=== PATIENT | male | born 1975 | race Hispanic/Latino ===

== ENCOUNTER 2018-05-11 14:53 | Outpatient (CLI) | payer BC ==
--- NOTE | 2018-05-15 09:49 | Vascular Lab Report ---
Left Lower Extremity Venous Duplex Study: Reason for Exam: Pain and swelling of the left lower extremity. Comments on the Right: A limited duplex study was done of the proximal veins of the right lower extremity. All veins visualized are freely compressible without evidence of internal echogenicity. Flow is spontaneous and phasic throughout. No evidence of acute or chronic thrombus is seen in any of the vessels visualized. Comments on the Left: All veins visualized are freely compressible without evidence of internal echogenicity. Flow is spontaneous and phasic throughout. No evidence of acute or chronic thrombus is seen in any of the vessels visualized. Nonspecific soft tissue changes are noted at the medial knee extending into the proximal calf. This may represent an intramuscular hematoma. Impression: No evidence of acute or chronic deep venous thrombosis in the left lower extremity. Possible left calf intramuscular hematoma.
== END 2018-05-11 14:54 | disposition home or self-care (01) ==
LOC: VAS 14:53
PROVIDERS: ATTEND Family Medicine
DX: M79.605 Pain in left leg (principal); M79.89 Other specified soft tissue disorders